=== PATIENT | male | born 2000 | race Caucasian/White ===

== ENCOUNTER 2023-07-05 14:29 | Emergency (ER) | payer BC, SELFPAY ==
[2023-07-05 14:30] VITALS: BP 127/87; PULSE 114; RESP 16; TEMP 36.3; O2SAT 100; BMI 28.2
--- NOTE | 2023-07-05 14:42 | EKG12_ITS ---
Test Reason : SYNCOPE Blood Pressure : / mmHG Vent. Rate : 101 BPM Atrial Rate : 101 BPM P-R Int : 142 ms QRS Dur : 112 ms QT Int : 358 ms P-R-T Axes : 032 051 031 degrees QTc Int : 464 ms Sinus tachycardia Otherwise normal ECG Confirmed by Emanuel Kraus ([id number]), newspaper editor managing ALYSIA TITUS ([id number]) on 07/06/2023 11:09:26 AM Referred By: Confirmed By:Emanuel Kraus
[2023-07-05] MEDS: Ondansetron ODT 4 MG Tablet PO (14:45)
[2023-07-05 15:40] VITALS: BP 121/81; PULSE 97; RESP 16; TEMP 36.4; O2SAT 100
--- NOTE | 2023-07-05 15:42 | EX.ED.DYSGE1 ---
HPI History of Present Illness Chief Complaint: Nausea/Vomiting/Diarrhea Narrative Narrative: 23-year-old male with nausea, vomiting, diarrhea. Has been having this since last evening. He states he retches so hard that he gets syncopal. He states he has not a fever but does admit to body aches and chills. Denies chest pain or shortness of breath. Currently feels comfortable. He is not having abdominal pain. He is nauseous. Denies sick contacts. No history of cardiac disease or family history of sudden cardiac . Patient prior to today's eating drinking normally and making normal urine and stool. Patient did state that he slightly hit his head but states I am good. He states he is not dizzy or nauseous other than for his nausea from earlier. No projectile vomiting. No visual complaints, severe headache. He is ambulatory. PFSH PFSH Medical History no medical history Home Medications ondansetron 4 mg disintegrating tablet 4 mg PO Q8H PRN PRN Nausea #10 tabs 07/05/23 [Rx Last Taken Unknown] Allergy/AdvReac Type Severity Reaction Status Date / Time No Known Allergies Allergy Verified 07/05/23 14:31 Surgical History no surgical history Social History Smoking Status: Never smoker ROS ROS ED Constitutional Constitutional ED: Denies chills, fever(s) or sweats Eyes Eyes: Denies blurry vision or change in vision ENT ENT ED: Denies ear pain or sore throat Cardiovascular Cardiovascular: Denies chest pain, palpitations or racing heartbeat Respiratory/Chest Respiratory/Chest: Denies cough, dyspnea or sputum Gastrointestinal Gastrointestinal: Denies abdominal pain, constipation, diarrhea, nausea or vomiting Genitourinary Genitourinary ED: Denies dysuria, hematuria or urinary frequency Musculoskeletal Musculoskeletal: Denies arthralgias, myalgias or neck pain Integumentary Denies abscess, Abrasions or rash Neurologic Neurologic: Denies headache(s), paresthesias or weakness Psychiatric Psychiatric: Denies anxiety, depression, suicidal ideation or suicidal thoughts Endocrine Endocrinology: Denies polydipsia or polyuria EXAM Physical Exam Const Vital Signs: 07/05/23 14:30 07/05/23 15:40 Temperature 97.4 F L 97.6 F L Temperature Source Temporal Pulse Rate 114 H 97 Respiratory Rate 16 16 Blood Pressure 127/87 H 121/81 H Blood Pressure Mean 100 94 Pulse Ox 100 100 Oxygen Delivery Method Room Air Positive well nourished General Appearance ED: NAD; Negative for pallor HEENT Reports moist mucous membranes trauma Eyes PERRL and EOMs intact bilaterally Resp normal respiratory effort and clear to auscultation bilaterally Auscultation: Negative for rales, rhonchi or wheezes Cardio regular rate and regular rhythm GI normal to inspection, nondistended, normoactive bowel sounds Neuro oriented x3 and CN's II-XII intact bilaterally Motor Exam: strength 5/5 throughout Psych mental status grossly normal Skin no rashes or lesions noted General Skin Exam: Negative for jaundice or pallor MDM MDM MDM Narrative Medical decision making narrative: Patient presenting with nausea, vomiting, diarrhea. I suspect a viral etiology however the patient does state that he ate [employer] last evening and he could have gotten something from black. He was treated with Zofran. He was able to tolerate p.o. fluids. After that she developed a headache and was given Tylenol. Given the syncope I obtained an EKG which on my interpretation shows a sinus tachycardia with a ventricular rate of 101 bpm without sign ischemic change or ectopy. I do not believe he has any lab work and imaging states he is feeling better. I suspect that his fainting episodes are secondary to vasovagal syncope from retching. He is able to tolerate p.o. fluids after Zofran and I think he is safe to go home. Discharged home with a prescription for Zofran. Impression: 1. Nausea/vomiting 2. Diarrhea 3. Syncope/vasovagal Lab Data Attestation: I reviewed the patient's lab results. Discharge Plan Triage Chief Complaint: Nausea/Vomiting/Diarrhea ED Provider: Patrick Rowley Dx/Rx/DC Orders Instructions: ED Gastroenteritis, Viral (Adult) Prescriptions: New ondansetron 4 mg tablet,disintegrating 4 mg PO Q8H PRN PRN (Reason: Nausea) Qty: 10 0RF Primary Care Provider: Care Physician,No Primary Referrals: Care Physician,No Primary [Primary Care Provider] - Disposition Disposition: Home, Self Care
[2023-07-05] MEDS: Acetaminophen 500 MG Tablet 1000 MG PO (15:44)
== END 2023-07-05 15:45 | disposition home or self-care (01) ==
PROVIDERS: Emergency Provider Student in an Organized Health Care Education/Training Program; Visit Provider Student in an Organized Health Care Education/Training Program
DX: R11.2 Nausea with vomiting, unspecified (principal); R19.7 Diarrhea, unspecified; R55 Syncope and collapse
CPT/HCPCS: 93005; 99283

== ENCOUNTER 2023-07-08 16:32 | Emergency (ER) | payer BC, SELFPAY ==
[2023-07-08 16:32] VITALS: BP 121/95; PULSE 70; RESP 18; TEMP 36.4; O2SAT 99; BMI 27.9
--- NOTE | 2023-07-08 16:47 | ED.VIS.GI ---
HPI HPI - GI History of Present Illness Chief Complaint: Nausea/Vomiting/Diarrhea Informant: patient Abdominal Pain/Flank Pain Onset: Days (3) Context: Gradual Onset Timing: Lasts (Hours) and Waxes and wanes Quality: Aching Location: Diffuse Worsened by: Nothing Relieved by: - (Curling up into a ball) Nausea/Vomiting/Emesis GI Symptom: Positive for Nausea and Vomiting Onset: Days (3) Quality: Positive for Nonbilious; Negative for Blood streaks, Coffee ground or Hematemesis Diarrhea/Melena/Hematochezia GI Symptom: Positive for Diarrhea; Negative for Melena or Hematochezia Onset: Days (3) Stool Quality: Positive for Loose and Watery Associated Symptoms Associated Symptoms: Negative for Dysuria, Frequency or Hematuria Narrative Narrative: Patient presents with abdominal pain, nausea, vomiting, and diarrhea that has been constant for the past 3 days. Patient was seen here at that time and was given a prescription for Zofran. Patient states he is still having nausea and vomiting. Patient states he followed up with urgent care today and was referred back to the emergency department. Patient states his abdominal pain is intermittent. Patient states it can last for hours. Patient describes as aching. Patient states it is diffuse across his entire abdomen. Patient states it gets better when he is able to curl up into a ball. Patient admits to some nausea and vomiting. Patient denies any hematemesis or coffee-ground emesis. Patient admits to diarrhea. Patient states it is loose and watery. Patient denies any melena or hematochezia. Patient denies any urinary complaints. Patient admits to decreased urine output however. PFSH PFSH Medical History no medical history no medical history Home Medications NK 07/08/23 [History Last Taken Unknown] Allergy/AdvReac Type Severity Reaction Status Date / Time No Known Allergies Allergy Verified 07/08/23 16:34 Surgical History no surgical history no surgical history Social History Smoking Status: Never smoker ROS ROS ED Constitutional Constitutional ED: Denies chills or fever(s) Eyes Eyes: Denies blurry vision or change in vision ENT ENT ED: Denies rhinorrhea or sore throat Cardiovascular Cardiovascular: Denies chest pain or palpitations Respiratory/Chest Respiratory/Chest: Denies cough or dyspnea Gastrointestinal Gastrointestinal: Reports abdominal pain, diarrhea, nausea and vomiting Genitourinary Genitourinary ED: Denies dysuria or hematuria Musculoskeletal Musculoskeletal: Denies back pain or neck pain Integumentary Denies abscess or rash Neurologic Neurologic: Denies headache(s) or weakness Allergic/Immunologic Allergic/Immunologic ED: Denies mouth swelling or urticaria EXAM Physical Exam Const Vital Signs: 07/08/23 16:32 07/08/23 18:32 Temperature 97.6 F L Temperature Source Temporal Pulse Rate 70 64 Respiratory Rate 18 16 Blood Pressure 121/95 H 126/78 H Blood Pressure Mean 103 94 Pulse Ox 99 98 Oxygen Delivery Method Room Air Room Air Positive well nourished and well developed General Appearance ED: well developed and NAD HEENT Reports moist mucous membranes Neck supple and no JVD Resp normal respiratory effort and clear to auscultation bilaterally Cardio regular rate and regular rhythm GI non-distended Palpation: soft and tender epigastric, LLQ, RLQ, LUQ, RUQ, periumbilical and suprapubic; Negative for guarding or rebound tenderness present Neuro CN's II-XII intact bilaterally, moves all extremities and no sensory deficits noted Sensorium / Orientation: alert Motor Exam: strength 5/5 throughout Psych mental status grossly normal MDM MDM MDM Narrative Medical decision making narrative: Differential diagnosis includes gastroenteritis, dehydration, electrolyte abnormality, bowel obstruction, perforation, and pancreatitis. CBC will be obtained to assess for leukocytosis and anemia. Comprehensive metabolic profile will be obtained to assess for electrolyte abnormality and renal function. Lipase will be obtained to assess for pancreatitis. Urinalysis will be obtained to assess for urinary tract infection. CT scan of the abdomen pelvis will be obtained to assess for bowel obstruction, perforation, and pancreatitis. Lab Data Attestation: I reviewed the patient's lab results. Lab results narrative: CBC was reviewed and was within normal limits. Comprehensive metabolic profile was reviewed and was essentially within normal limits. Lipase was reviewed and was normal at 33. Urinalysis was reviewed. There is no evidence of urinary tract infection or hematuria. Labs: Laboratory Results - last 24 hr 07/08/23 07/08/23 17:05 17:30 WBC 4.7 RBC 5.67 Hgb 16.0 Hct 47.7 MCV 84.1 MCH 28.2 MCHC 33.5 RDW Std Deviation 37.2 RDW Coeff of Kianna 12.3 Plt Count 282 MPV 9.7 Immature Gran % (Auto) 0.200 Neut % (Auto) 64.0 Lymph % (Auto) 22.0 [place] % (Auto) 10.4 H Eos % (Auto) 3.0 Baso % (Auto) 0.4 Absolute Neuts (auto) 3.0 Absolute Lymphs (auto) 1.04 Nucleated RBC % 0 Sodium 136 Potassium 3.4 L Chloride 105 Carbon Dioxide 28.0 Anion Gap 3 L BUN 11 Creatinine 0.98 Estim Creat Clear Calc 143.30 Est GFR (MDRD) Af Amer 121 Est GFR (MDRD) Non-Af 100 BUN/Creatinine Ratio 11.2 Glucose 93 Calcium 8.7 Total Bilirubin 0.90 AST 29 ALT 54 Alkaline Phosphatase 43 L Total Protein 7.4 Albumin 3.9 Globulin 3.5 Albumin/Globulin Ratio 1.1 Lipase 33 Urine Color Yellow Urine Clarity Clear Urine pH 6.0 Ur Specific [place] 1.020 Urine Protein 15 H Urine Glucose (UA) Normal Urine Ketones 5 H Urine Occult Blood Negative Urine Nitrite Negative Urine Bilirubin 1 H Urine Urobilinogen 1 H Ur Leukocyte Esterase 25 H Urine RBC 0 SEEN Urine WBC 0-5 SEEN Ur Squamous Epith Cells 0 SEEN Urine Bacteria RARE Urine Mucus 2+ Radiography Diagnostic Testing: Clinical Impression(s) from Imaging Studies Abdomen/Pelvis CT 07/08/23 16:57 IMPRESSION: Findings which may be consistent with nonspecific gastroduodenitis Contracted gallbladder without calcified stones. If concern for gallbladder disease ultrasound recommended No evidence for small bowel obstruction or other acute abnormality Electronically Signed: Harley Gr MD at 19:07 EDT Reading Location ID and State: [facility] [place] / [place] Tel , Service support , CT scan of the abdomen pelvis was obtained. There is nonspecific gastroduodenitis. There is no evidence of bowel obstruction. There is no perforation. This was interpreted by the radiologist and was also independently reviewed by myself. Treatment and Re-Evaluation :: Patient was given IV fluids, Zofran, and Bentyl. Patient is feeling better on reevaluation. Patient was advised of his findings. Patient was instructed to continue the Zofran as needed for nausea. Patient was instructed to start with a bland diet and advance as tolerated. Patient was instructed to follow-up with his primary care physician in 5 to 7 days. Patient understood and was agreeable with the plan. All questions were answered. Discharge Plan Triage Chief Complaint: Nausea/Vomiting/Diarrhea ED Provider: Víctor Brown Dx/Rx/DC Orders Clinical Impression: Nausea and vomiting, Abdominal pain Instructions: ED Vomiting (Adult) Prescriptions: No Action NK Primary Care Provider: Care Physician,No Primary Referrals: Oscar Godoy MD [Med Staff - Active Staff] - 5-7 Days Care Physician,No Primary [Primary Care Provider] - Disposition Disposition: Home, Self Care
--- NOTE | 2023-07-08 16:57 | CT_ITS ---
STUDY: CT ABDOMEN AND PELVIS WITH CONTRAST REASON FOR EXAM: Male, 23 years old. Abdominal pain -- IV PO Contrast RADIATION DOSAGE (If Supplied By Facility): CTDIvol = ( 12.16 ) mGy, DLP = ( 901.89 ) mGycm TECHNIQUE: Transaxial images were obtained from the dome of the diaphragm to the symphysis pubis without oral contrast. Oral and amp; IV Gastrografin and amp; 100mL Isovue-370 was administered. Sagittal and coronal images were reconstructed. Individualized dose optimization techniques were used for this CT. COMPARISON: October 12, 2012. FINDINGS: The visualized lung bases are unremarkable. The visualized portions of the heart are within normal limits. Normal liver. Contracted thick-walled gallbladder without calcified stones or pericholecystic edema possibly physiologic. If concern for gallbladder disease ultrasound recommended. Normal spleen. Normal pancreas. Normal bilateral adrenal glands. Normal right kidney. Normal left kidney. Concentric thickening of the villegas of the gastroduodenal junction with narrowing of the lumen which may be consistent with nonspecific gastroduodenitis. Normal small intestine. Normal colon. The appendix is visualized and appears normal. Tiny mesenteric nodes are observed without stranding in the fat most likely benign Normal abdominal aorta. Normal inferior vena cava. Normal retroperitoneum. Incompletely distended thick walled bladder likely of no significance Small fat-containing left inguinal hernia. Tiny bilateral inguinal nodes likely benign Normal osseous structures. CT/Abdomen/Pelvis WITH Contrast IMPRESSION: Findings which may be consistent with nonspecific gastroduodenitis Contracted gallbladder without calcified stones. If concern for gallbladder disease ultrasound recommended No evidence for small bowel obstruction or other acute abnormality Electronically Signed: Harley Gr MD at 19:07 EDT Reading Location ID and State: [facility] / [place] Tel , Service support ,
[2023-07-08] MEDS: 0.9% Normal Saline (1000mL) 1,000 ML 1000 ML IV (17:12)
[2023-07-08] MEDS: Dicyclomine 10 MG Capsule 20 MG PO (17:12)
[2023-07-08] MEDS: Ondansetron 4 MG/2 ML Vial IV (17:12)
[2023-07-08 17:30] LABS: Absolute Lymphocyte Count 1.04 X10^3/uL (0.83-4.51); Basophil# 0.02 X10^3/uL; Basophil% 0.4 % (0-1); Eosinophil# 0.14 X10^3/uL; Hematocrit 47.7 % (40-54); Lymphocyte # 1.04 X10^3/ul (0.83-4.51); Mean Corp Hgb Conc 33.5 g/dL (32-36); Mean Corpuscular Hgb 28.2 pg (27.0-32.0); Mean Corpuscular Volume 84.1 fL (80-94); Mean Platelet Vol. 9.7 fl (6.2-12.0); Monocyte# 0.49 X10^3/uL; Monocyte% 10.4 % (0-10); NRBC Flagged by Analyzer 0 % (0-5); Neutrophil # 3.03 X10^3/uL (2.7-7.7); Platelet Count 282 K/mm3 (150-450); RBC Distribution Width CV 12.3 % (11.6-14.6); RBC Distribution Width SD 37.2 fl (35.1-43.9); Red Blood Count 5.67 M/mm3 (4.6-6.2); White Blood Count 4.7 K/mm3 (4.4-11.0)
[2023-07-08 17:41] LABS: Red Blood Cells-Urine 0 SEEN /hpf (0-5); Squamous Epithelial Cells - UA 0 SEEN /hpf (0-5)
[2023-07-08 17:43] LABS: Color, Urine Yellow (Yellow); Glucose, Dipstick Normal (Normal); Ketone-Dipstick 5 mg/dl (Negative); Leukocyte Esterase-Dipstick 25 /ul (Negative); Nitrite-Dipstick Negative (Negative); Occult Blood-Urine Negative /ul (Negative); Protein-Dipstick 15 mg/dl (Negative); Urine Clarity Clear (Clear); Urine Urobilinogen 1 mg/dl (Normal)
[2023-07-08 17:50] LABS: ALB/GLOB Ratio 1.1 RATIO (0.9-2.4); AST(SGOT) 29 U/L (15-37); Alanine Aminotransfer ALT/SGPT 54 U/L (16-61); Albumin, Serum 3.9 g/dL (3.2-5.0); Alkaline Phosphatase 43 U/L (45-117); Anion Gap 3 (5-15); BUN 11 mg/dL (7-18); BUN/Creat Ratio 11.2 RATIO (10-20); Calcium,Total 8.7 mg/dL (8.5-10.1); Chloride 105 mmol/L (98-107); Creatinine, Serum 0.98 mg/dL (0.70-1.30); EST Glomerular Filtration Rate 100 mL/min (>60); Est Glom Filt Rate - Afr Amer 121 mL/min (>60); Globulin 3.5 g/dL (2.2-4.2); Glucose 93 mg/dL (74-106); Lipase 33 U/L (13-75); Potassium 3.4 mmol/L (3.5-5.1); Protein, Total 7.4 g/dL (6.4-8.2); Sodium Level 136 mmol/L (136-145)
[2023-07-08 18:00] LABS: Urine Bilirubin Dipstick 1 mg/dL (Negative)
[2023-07-08 18:02] LABS: Mucous, Urine 2+ /hpf (<or=2+); White Blood Cells 0-5 SEEN /hpf (0-5)
[2023-07-08 18:03] LABS: Bacteria RARE /hpf (None Seen)
[2023-07-08 18:32] VITALS: BP 126/78; PULSE 64; RESP 16; O2SAT 98
[2023-07-08 20:00] VITALS: BP 123/74; PULSE 72; RESP 18; O2SAT 98
[2023-07-08 20:31] VITALS: BP 123/74; PULSE 72; RESP 18; TEMP 36.9; O2SAT 99
== END 2023-07-08 20:32 | disposition home or self-care (01) ==
PROVIDERS: Emergency Provider Emergency Medicine; Visit Provider Emergency Medicine
DX: R11.2 Nausea with vomiting, unspecified (principal); R10.9 Unspecified abdominal pain; R19.7 Diarrhea, unspecified; K29.90 Gastroduodenitis, unspecified, without bleeding
CPT/HCPCS: 74177; 80053; 81001; 83690; 85025; 96361; 96374; 99284; J7030; Q9967; A4216; J2405